=== PATIENT | male | born 1955 | race Caucasian/White ===

== ENCOUNTER 2018-06-27 11:08 | Day surgery (SDC) | payer OTHER ==
[~2018-06-27] VITALS: Ht 188 cm; Wt 76.4 kg
--- NOTE | ~2018-06-27 | OP ---
PATIENT NAME: KARI REA MEDICAL RECORD: [id number] :53 [facility] DATE: SURGEON: RANI BROCK MD DATE OF OPERATION: 06/27/2018 REFERRING PHYSICIAN: Zaira Leal APN in [place] INDICATIONS: Mr. Rea is a very pleasant 62-year-old gentleman with a history of multiple myeloma, COPD, and chronic kidney disease, who is referred for symptoms of nausea and diarrhea. He has been having 2 loose stools a day. He has a history of Clostridium difficile colitis in July 2017 with recurrence in October 2017 and again in November 2017 (treated with Flagyl each time). He presents for outpatient colonoscopy. PREMEDICATIONS: Total IV anesthesia (history of COPD, multiple myeloma, and stage IV chronic kidney disease), propofol 250 mg. INSTRUMENT: Olympus video colonoscope, pediatric. PROCEDURE AND FINDINGS: After receiving informed consent, Mr. Rea was placed in left lateral decubitus position and sedated as per anesthesia. After achieving an adequate level of sedation, digital rectal exam was performed that showed external hemorrhoidal tag. No fissures or fistulas, normal sphincter tone, no palpable rectal masses. Colonoscope was introduced per rectally and advanced to the cecum with a little difficulty in a somewhat long and redundant colon. The cecum, IC valve, and appendiceal orifice were identified. As the colonoscope was withdrawn, careful inspection was made of the griffith of the colon. Overall mucosa had normal vascular and fold pattern. Ascending colon biopsies were obtained to rule out microscopic colitis. Multiple diverticula were noted in the sigmoid colon (moderate) and there was also patchy erythema noted in the sigmoid colon and biopsies were obtained from the sigmoid colon as well. Retroflexion in rectum was done and mild internal hemorrhoids were noted. Stool was collected throughout the colon for study. A fair prep was present. Withdrawal time was 7 minutes. Mr. Rea tolerated the procedure well, no immediate complications. ASSESSMENT: 1. Minimal nonspecific colitis, status post ascending and sigmoid colon biopsies. 2. Moderate sigmoid diverticulosis coli. 3. Mild internal hemorrhoids. 4. History of Clostridium difficile. 5. History of multiple myeloma. RECOMMENDATIONS: 1. Follow up histopathology. 2. Stool to be sent via XTAG for study. 3. Screening colonoscopy in 5 years. TRANSINT:[id number] Voice Confirmation ID: [id number] DOCUMENT ID: [id number] CC: Zaira Leal APN [phone] OPERATIVE REPORT [id number] KARI REA TERRI MD CC: ZAIRA LEAL APN, MIMI BRADY MD and MIMI EASTON [phone] DICTATION DATE: 06/27/18 140 [employer]EDBOAT DRIVER: 06/27/18 1415 [facility] 06/27/18 [place] [id number] [place] [id number]
[2018-06-27 11:33] LABS: BASOPHILS 0.2 % (0-2); EOSINOPHILS 2.9 % (0-7); HEMATOCRIT 33.6 % (42.0-54.0); HEMOGLOBIN 10.8 g/dL (13.5-17.5); IMMATURE GRANULOCYTES 0.3 % (0-5); MCH 32.1 pg (26.0-34.0); MCHC 32.1 g/dL (31.0-37.0); MEAN PLATELET VOLUME 9.9 fL (7.4-10.4); MONOCYTES 13.5 % (2-11); NEUTROPHILS 56.1 % (40-80); PLATELET COUNT 102 10x3/uL (130-400); RBC 3.36 10x6/uL (4.20-6.10); RDW 14.5 % (11.5-14.5); WBC 6.3 10x3/uL (4.8-10.8)
[2018-06-27 11:45] LABS: ANION GAP 12.2 mmol/L (8-16); CALCIUM 7.7 mg/dL (8.5-10.1); CARBON DIOXIDE 26.3 mmol/L (21.0-32.0); CREATININE - SERUM 2.6 mg/dL (0.6-1.3); POTASSIUM - SERUM 4.5 mmol/L (3.5-5.1)
[2018-06-27] MEDS ORDERED: ASPIRIN81 MG PO (12:52)
[2018-06-27] MEDS ORDERED: CALCIUM 250+D T1 TAB PO (12:52)
[2018-06-27] MEDS ORDERED: ZYLOPRIM100 MG PO (12:52)
[2018-06-27] MEDS ORDERED: DECADRON4 MG PO (12:53)
[2018-06-27] MEDS ORDERED: MULTI-DAY VITAM1 TAB PO (12:53)
[2018-06-27] MEDS ORDERED: VITAMIN D250000 UNIT PO (12:54)
[2018-06-27] MEDS ORDERED: NORCO 10-325 TA1 TAB PO (12:54)
[2018-06-27] MEDS ORDERED: FOLIC ACID1 MG PO (12:54)
[2018-06-27] MEDS ORDERED: MAGNESIUM OXID250 MG PO (12:55)
[2018-06-27] MEDS ORDERED: PREVALITE POWD231 GM PO (12:55)
[2018-06-27] MEDS ORDERED: REVLIMID5 MG PO (12:55)
[2018-06-27] MEDS ORDERED: SODIUM BICARBO325 MG PO (12:56)
[2018-06-27] MEDS ORDERED: ZOLOFT25 MG (12:56)
[2018-06-27] MEDS ORDERED: SUPER B COMPLE150 MG PO (12:56)
[2018-06-27] MEDS ORDERED: VITAMIN E100 UNIT PO (12:56)
[2018-06-27 12:58] VITALS: BP 136/78; Ht 188 cm; Wt 76.4 kg
== END 2018-06-27 15:10 | disposition home or self-care (01) ==
LOC: D.OPS 11:08
PROVIDERS: Anesthesiology
DX: R11.0 Nausea (principal); R19.7 Diarrhea, unspecified; K52.9 Noninfective gastroenteritis and colitis, unspecified; K57.90 Diverticulosis of intestine, part unspecified, without perforation or abscess without bleeding